=== PATIENT | female | born 1995 | race African-American/Black ===

== ENCOUNTER 2023-12-01 16:51 | Outpatient (CLI) | payer OTHER, SELFPAY | END 2023-12-01 23:59 | disposition home or self-care (01) | LOC: LAB.DROPOF 16:51 | PROVIDERS: PCP Nurse Practitioner Family; Visit Provider Nurse Practitioner Family | DX: J02.9 Acute pharyngitis, unspecified (principal) | CPT/HCPCS: 87070 ==

== ENCOUNTER 2023-12-03 16:36 | Outpatient (CLI) | payer OTHER, SELFPAY ==
[2023-12-03 16:42] LABS: Microscopic, Urine URINE MICROSCOPIC (MICROSCOPIC)
[2023-12-03 17:09] LABS: Appearance,Urine CLEAR (Clear); Bilirubin,Urine Negative (Negative); Blood, Urine Negative (Negative); Color,Urine YELLOW (Yellow); Glucose,Urine (UA) Negative (Negative); Ketones,Urine Negative (Negative); Leukocyte Esterase,Urine Negative (Negative); Nitrate,Urine Negative (Negative); Protein,Urine Negative (Negative); Specific Gravity, Urine >= 1.030 (1.005-1.030); Urobilinogen,Urine 0.2 EU/dl (0.2)
[2023-12-03 17:46] LABS: RBC,Urine Occasional #/hpf (0-3)
[2023-12-03 17:47] LABS: Bacteria,Urine 3+ /lpf; Mucus,Urine 3+ /lpf
== END 2023-12-03 23:59 | disposition home or self-care (01) ==
LOC: LAB 16:37
PROVIDERS: PCP Nurse Practitioner Family; Visit Provider Nurse Practitioner Family
DX: R53.83 Other fatigue (principal); Z13.1 Encounter for screening for diabetes mellitus
CPT/HCPCS: 81001; 87086

== ENCOUNTER 2023-12-04 08:47 | Outpatient (CLI) | payer OTHER, SELFPAY ==
[2023-12-04 09:32] LABS: Basophils # 0.1 K/mm3 (0-0.2); Basophils % 2.3 % (0.1-2.0); Eosinophils # 0.2 K/mm3 (0.0-0.4); Eosinophils % 2.9 % (0.1-12.0); Hematocrit 39.7 % (37.0-47.0); Hemoglobin 13.7 g/dL (12.2-16.2); Lymphocytes % 15.7 % (10-50); Mean Corpuscular HGB Conc 34.5 g/dL (31.8-35.4); Mean Corpuscular Hemoglobin 29.4 pg (27.0-31.2); Mean Corpuscular Volume 85.4 fl (81-99); Mean Platelet Volume 8.6 fl (7.4-10.4); Monocytes # 0.3 K/mm3 (0.1-1.0); Monocytes % 4.8 % (1.7-9.3); Neutrophils # 4.6 K/mm3 (1.8-7.8); Neutrophils % 74.2 % (37.0-80.0); Platelet Count 273 K/mm3 (142-424); Red Blood Count 4.65 M/mm3 (4.20-5.40); Red Cell Distribution Width 13.7 % (11.5-17.5); White Blood Count 6.2 K/mm3 (4.8-10.8)
[2023-12-04 09:45] LABS: Albumin Level 4.2 g/dl (3.5-5.0)
[2023-12-04 09:46] LABS: Chloride 110 mmol/L (98-107); Potassium 3.9 mmoL/L (3.5-5.1); Sodium 140 mmol/L (136-145)
[2023-12-04 09:48] LABS: Alanine Aminotransferase 18 U/L (12-78); Albumin/Globulin Ratio 1.6 (1.1-1.8); Alkaline Phosphatase 74 U/L (38-126); Anion Gap 9.9 mEq/L (5-15); Aspartate Amino Transferase 25 U/L (14-36); Bilirubin,Total 0.8 mg/dl (0.2-1.3); Blood Urea Nitrogen 14 mg/dl (7-17); Carbon Dioxide 24 mmol/L (22.0-30.0); Estimated Glomerular Filt Rate 121 ml/min (>60); GFR (African American) 146 ML/MIN (>60); Globulin 2.6 g/dL (1.3-3.2); Hemoglobin A1C 4.8 % (4.0-6.0); Iron 189 ug/dL (37-170); Total Protein,Serum 6.8 g/dl (6.3-8.2)
[2023-12-04 09:49] LABS: Calcium 8.9 mg/dl (8.4-10.2); Chol/HDL Ratio 2.2 (1-3.5); Cholesterol 126 mg/dl (140-200); Glucose 97 mg/dl (74-100); HDL Cholesterol 57 mg/dl (40-60); Triglycerides 42 mg/dl (30-150); VLDL Cholesterol 8 mg/dL (0-40)
[2023-12-04 09:59] LABS: Total Iron Binding Capacity 315 ug/dL (265-497)
[2023-12-04 10:00] LABS: Uric Acid 4.7 mg/dl (2.5-6.2)
[2023-12-04 10:06] LABS: 25-OH Vitamin D, Total 45.7 ng/mL (30-100)
[2023-12-04 10:22] LABS: Thyroid Stimulating Hormone < 0.02 uIU/mL (0.465-4.68)
[2023-12-04 10:44] LABS: Erythrocyte Sedimentation Rate 30 mm/hr (0-20)
[2023-12-04 10:50] LABS: Vitamin B12 704 pg/mL (239-931)
[2023-12-04 11:44] LABS: Free T4 (Free Thyroxine) 1.24 ng/dl (0.78-2.19)
[2023-12-04 13:05] LABS: HIV (1&2) Antibody Rapid NONREACTIVE (NONREACTIVE)
[2023-12-05 05:56] LABS: HCV Ab Non Reactive (Non Reactive)
[2023-12-05 08:21] LABS: RA Latex Turbid. <10.0 IU/mL (<14.0)
[2023-12-08 12:27] LABS: Antinuclear Antibodies, IFA Negative (.)
[2024-01-06 16:05] LABS: Antinuclear Antibodies (ANA) NEGATIVE
== END 2023-12-04 23:59 | disposition home or self-care (01) ==
LOC: LAB 08:48
PROVIDERS: PCP Nurse Practitioner Family; Visit Provider Nurse Practitioner Family
DX: F41.9 Anxiety disorder, unspecified (principal); E53.8 Deficiency of other specified B group vitamins; M79.642 Pain in left hand; M79.641 Pain in right hand; R53.83 Other fatigue; E05.90 Thyrotoxicosis, unspecified without thyrotoxic crisis or storm; E55.9 Vitamin D deficiency, unspecified; Z13.220 Encounter for screening for lipoid disorders; Z11.4 Encounter for screening for human immunodeficiency virus [HIV]; Z13.1 Encounter for screening for diabetes mellitus; Z11.59 Encounter for screening for other viral diseases; Z82.61 Family history of arthritis
CPT/HCPCS: 36415; 80050; 80053; 80061; 82306; 82607; 82728; 83036; 83540; 83550; 84439; 84443; 84550; 85025; 85651; 86038; 86225; 86235; 86431; 86803; 87389

== ENCOUNTER 2023-12-16 14:01 | Outpatient (CLI) | payer OTHER, SELFPAY ==
--- NOTE | 2023-12-16 14:06 | US_ITS ---
FINAL REPORT CLINICAL HISTORY: HYPERTHYROIDISM COMPARISON: None FINDINGS: Sonographic images of the thyroid gland were obtained. The right thyroid lobe measures 33 mm. in length. The left thyroid lobe measures 58 mm. in length. The thyroid isthmus measures 3 mm. The echogenicity is normal. The right lobe of the thyroid gland is unremarkable in appearance. No focal mass or nodule is visualized. There is a large nodule in the left thyroid gland, cystic and solid, the solid component mostly isoechoic. This nodule measures 47 x 26 mm in size, and is a TI-RADS category 2 nodule. No other focal nodules are identified. IMPRESSION: Large TI-RADS category 2 nodule in the left lobe of the thyroid gland as described. Despite its relatively benign appearance, due to its large size would recommend a follow-up exam in 6 to 12 months for further evaluation. Reviewed, Interpreted and Dictated by Ladarius Ramírez III, MD Transcribed by Angela Buchanan Authenticated and [facility]
== END 2023-12-16 23:59 | disposition home or self-care (01) ==
LOC: RAD 14:02
PROVIDERS: PCP Nurse Practitioner Family; Visit Provider Nurse Practitioner Family
DX: E05.90 Thyrotoxicosis, unspecified without thyrotoxic crisis or storm (principal)
CPT/HCPCS: 76536